=== PATIENT | female | born 1970 | race Caucasian/White ===

== ENCOUNTER → 2017-06-10 | Outpatient (CLI) | payer OTHER, BC ==
[~2017-06-10] MED LIST: LORA10TA37 PO
[2017-06-10 15:20] LABS: HEMATOCRIT 43.7 % (34.6-47.8); HEMOGLOBIN 14.8 g/dL (11.7-16.4); WHITE BLOOD COUNT 11.4 x10^3/uL (3.4-10)
== END | disposition home or self-care (01) ==
LOC: STAR 14:00
PROVIDERS: ATTEND Obstetrics & Gynecology Female Pelvic Medicine and Reconstructive Surgery
DX: Z01.818 Encounter for other preprocedural examination (principal); N39.3 Stress incontinence (female) (male)
CPT/HCPCS: 36415; 85025

== ENCOUNTER 2017-06-20 12:33 | Day surgery (SDC) | payer OTHER, BC ==
[~2017-06-20] VITALS: Ht 175.3 cm; Wt 122.7 kg
[~2017-06-20 12:33] MED LIST changes: +BUPIVACAINE/PF 0.25% ONE; +FLUORESCEIN SODIUM 500 MG/5 ML ONE; +NEOMY/POLYMYXIN B GU IRR. 1 ML IRRIG ONE; +THROMBIN 5,000 UNIT VIAL TP ONE
[2017-06-20] MEDS ORDERED: LACTATED RINGERS 1,000 ML IV SCH ×2 (12:45→14:46)
[2017-06-20 12:48] VITALS: BP 143/84
[2017-06-20] MEDS ORDERED: ACETAMINOPHEN 500 MG TABLET ONE (12:48)
[2017-06-20] MEDS ORDERED: SCOPOLAMINE PATCH, 1MG PATCH.TD72 TD ONE ×2 (12:48→13:00)
[2017-06-20] MEDS ORDERED: ACETAMINOPHEN 500 MG TABLET PO ONE (13:00)
[2017-06-20] MEDS ORDERED: FENTANYL PF 100 MCG/2ML ONE (13:53)
[2017-06-20] MEDS ORDERED: ONDANSETRON 2MG/ML, 2ML ONE (13:55)
[2017-06-20] MEDS ORDERED: LIDOCAINE-MPF 2% ,5ML ONE (13:55)
[2017-06-20] MEDS ORDERED: METOCLOPRAMIDE 5 MG/ML, 2ML ONE (13:55)
[2017-06-20] MEDS ORDERED: ROCURONIUM 10 MG/ML ONE (13:55)
[2017-06-20] MEDS ORDERED: PROPOFOL 10 MG/ML, 20ML ONE (13:55)
[2017-06-20] MEDS ORDERED: KETOROLAC 30 MG/1 ML ONE (13:55)
[2017-06-20] MEDS ORDERED: DEXAMETHASONE 4 MG/ML, 1ML ONE (13:55)
[2017-06-20] MEDS ORDERED: CEFAZOLIN 1,000 MG ONE (13:55)
[2017-06-20] MEDS ORDERED: MEPERIDINE/PF 25MG/0.5ML IVPush PRN (14:30)
[2017-06-20] MEDS ORDERED: HYDROmorphone 1 MG/ML, 1ML IV PRN (14:30)
[2017-06-20] MEDS ORDERED: MIDAZOLAM 1 MG/ML, 2ML IV PRN (14:30)
[2017-06-20] MEDS ORDERED: LABETALOL 5MG/ML, 20ML IV PRN (14:30)
[2017-06-20] MEDS ORDERED: PROMETHAZINE 25 MG/ML, 1ML IV PRN (14:30)
[2017-06-20] MEDS ORDERED: FENTANYL PF 100 MCG/2ML IV PRN (14:30)
[2017-06-20] MEDS ORDERED: ONDANSETRON 2MG/ML, 2ML IVPush PRN ×2 (14:30→15:00)
[2017-06-20] MEDS ORDERED: hydrALAzine 20 MG/ML, 1ML IV PRN (14:30)
[2017-06-20] MEDS ORDERED: OXYcodone 5 MG/5 ML ORAL.SOL UDC PO PRN (14:30)
[2017-06-20] MEDS ORDERED: IBUPROFEN 600 MG TABLET PO PRN (15:00)
[2017-06-20] MEDS ORDERED: OXYcodone/APAP 5/325MG TABLET PO PRN (15:00)
[2017-06-20] MEDS ORDERED: PROMETHAZINE 25 MG SUPP PR ONE (15:00)
== END 2017-06-20 18:10 | disposition home or self-care (01) ==
LOC: OUT 12:33
PROVIDERS: ATTEND Obstetrics & Gynecology Female Pelvic Medicine and Reconstructive Surgery
DX: N36.42 Intrinsic sphincter deficiency (ISD) (principal); N90.89 Other specified noninflammatory disorders of vulva and perineum; N39.3 Stress incontinence (female) (male); D28.0 Benign neoplasm of vulva; E66.01 Morbid (severe) obesity due to excess calories; D64.9 Anemia, unspecified; Z68.41 Body mass index [BMI] 40.0-44.9, adult; Z98.890 Other specified postprocedural states; Z88.6 Allergy status to analgesic agent; Z90.710 Acquired absence of both cervix and uterus
CPT/HCPCS: 11421; 11422; 57288; 88305; C1771; J0690; J1100; J1885; J2405; J2704; J2765; J3010; J3490; J7120; 88304